=== PATIENT | male | born 1965 | race Native Hawaiian/Other Pacific Islander ===

== ENCOUNTER 2016-08-28 16:15 | Emergency (ER) | payer BC, OTHER ==
[2016-08-28 16:24] VITALS: RESP 20
[2016-08-28] MEDS ORDERED: MORPHINE SULFATE 10 MG/ML SYRINGE IM STA (16:27)
--- NOTE | 2016-08-28 16:43 | ED ---
Lower Extremity Injury HPI - General Chief Complaint: Extremity Injury, Lower Stated Complaint: Knee Pain/Injury Time Seen by Provider: 08/28/16 16:26 Source: patient Mode of arrival: wheelchair Limitations: no limitations - History of Present Illness Initial Comments: Patient is a 51-year-old male presenting to the emergency department with complaints of right knee pain. Onset of injury approximately one hour prior to arrival. Patient states that he was bending down to put on his pants on his left leg when his right leg hyperextended. Patient states he heard a pop. Patient mostly complains of medial knee pain but states the lateral side hurts too. Patient states he was unable to ambulate on scene and is unable to ambulate or extend right leg secondary to right knee pain and emergency department. Patient states that he has a history of a previous arthroscopically repair to his left knee and meniscal tear to his left knee that [place] [address] Kim. Patient states she received a hydrocortisone shot in his left knee on August 25 by his primary physician, Dr. Lugo, and has a prescription for a knee immobilizer that he was supposed to use at work, but hasn't filled prescription yet. Place: home Severity: severe Severity scale (1-10): 10 Improves With: immobilization, rest Worsens With: weight bearing, movement, palpation Context: other Associated Symptoms: snap/pop sensation, unable to bear weight - Related Data Home Medications Medication Instructions Recorded Confirmed HYDROcodone/IBUPROFEN 7.5-200 1 - 2 tab PO Q6H PRN 05/11/16 08/28/16 [Vicoprofen] Montelukast [Singulair] 10 mg PO DAILY 05/11/16 08/28/16 Rizatriptan Odt [Maxalt [employer]] 10 mg PO Q2H PRN MDD max 30mg 05/11/16 08/28/16 Tamsulosin HCl [Flomax] 0.4 mg PO DAILY 05/11/16 08/28/16 Cholecalciferol [Vitamin D3] 1,000 unit PO DAILY 05/12/16 08/28/16 Cyanocobalamin [Vitamin B-12] 500 mcg PO DAILY 05/12/16 08/28/16 Previous Rx's Medication Instructions Recorded Ondansetron [Zofran] 4 mg PO Q8HR PRN #10 tab 05/12/16 Allergies Allergy/AdvReac Type Severity Reaction Status Date / Time No Known Allergies Allergy Verified 08/28/16 16:22 Review of Systems ROS Statement: Those systems with pertinent positive or pertinent negative responses have been documented in the HPI. ROS Other: All systems not noted in ROS Statement are negative. Past Medical History Past Medical History: Asthma Additional Past Medical History / Comment(s): arthritiis History of Any Multi-Drug Resistant Organisms: None Reported Past Surgical History: Orthopedic Surgery Additional Past Surgical History / Comment(s): right knee and right wrist Past Psychological History: No Psychological Hx Reported Smoking Status: Never smoker Past Alcohol Use History: None Reported Past Drug Use History: None Reported General Exam Limitations: no limitations General appearance: alert, in no apparent distress, anxious Head exam: Present: atraumatic, normocephalic, normal inspection Respiratory exam: Present: normal lung sounds bilaterally. Absent: respiratory distress, wheezes, rales, rhonchi, stridor Cardiovascular Exam: Present: regular rate, normal rhythm, normal heart sounds. Absent: systolic murmur, diastolic murmur, rubs, gallop, clicks Right Knee exam: Present: tenderness (Tenderness with palpation to lateral and medial aspect of left knee but more medial.). Absent: full ROM (Limited mobility secondary to pain), full knee extension (Patient unable to straighten leg secondary to pain.) Ankle exam: Present: normal inspection, full ROM. Absent: tenderness, swelling Foot/Toe exam: Present: normal inspection, full ROM. Absent: tenderness, swelling, dislocation Neurovascular tendon exam: Present: no vascular compromise. Absent: abnormal cap refill, motor deficit, sensory deficit, tendon deficit, extremity cold to touch, abnormal 2-point discrimination, decreased fine/light touch, foot drop ( Patient able to dorsiflex left foot, 2+ pedal pulse, sensation to first webspace and great toe on the left side, movement of all toes on left foot. Refill on left foot less than 3 seconds.), significant pain with passive ROM of distal joint Gait: not tested/not observed Neurological exam: Present: alert, oriented X3. Absent: motor sensory deficit Psychiatric exam: Present: normal affect, normal mood, anxious Skin exam: Present: warm, dry, intact, normal color. Absent: rash Course Vital Signs 08/28/16 16:22 Temperature 97.8 F Pulse Rate 78 Respiratory 20 Rate Blood Pressure 134/90 O2 Sat by Pulse 98 Oximetry Medical Decision Making - Medical Decision Making Right knee sprain. X-ray without acute fracture or dislocation. Calcification of the meniscus. Patient instructed to follow-up with orthopedic service early next week, utilize crutches and continue pain medicine along with ice, rest, and elevation. Patient agrees with treatment plan. Return parameters and discharge instructions reviewed. - Radiology Data Radiology results: report reviewed X-ray right knee complete: Meniscal calcification is felt present. No acute fracture or dislocation. Mild joint space loss and spurring patellofemoral compartment. Overlying soft tissue appears unremarkable. Impression: No acute fracture or dislocation of the right knee. Chondrocalcinosis and mild degenerative changes present. Disposition Clinical Impression: Sprain of right knee Disposition: HOME SELF-CARE Condition: Good Instructions: Knee Pain (ED), Knee Sprain (ED) Additional Instructions: Follow-up with orthopedic service early next week. Follow-up with primary care physician as directed. Continue weight bearing as tolerated, crutches for comfort, continue ice, rest, and elevation as directed. Please return to the emergency department if symptoms do not improve or get worse. Referrals: Morteza Lugo MD [Primary Care Provider] - 1-2 days Gio Hernandez DO [Doctor of Osteopathic Medicine] - 1-2 days Time of Disposition: 17:35
[2016-08-28] MEDS ORDERED: KETOROLAC 30 MG/ML 1 ML VIAL IM STA (17:15)
--- NOTE | 2016-08-28 17:27 | XR ---
EXAMINATION TYPE: XR knee complete RT DATE OF EXAM: 08/28/2016 4:53 PM CLINICAL HISTORY: History of multiple right knee surgeries presents with pain. TECHNIQUE: Three views of the right knee are obtained. COMPARISON: None. FINDINGS: Meniscal calcification is felt present. A fabella is seen. There is no acute fracture/disl ocation evident in right knee. There is mild joint space loss and spurring patellofemoral compartment . The overlying soft tissue appears unremarkable. IMPRESSION: There is no acute fracture or dislocation in the right knee. Chondrocalcinosis and mild degenerative change is present.
[2016-08-28 17:43] VITALS: BP 141/90; PULSE 90; TEMP 98.2
== END 2016-08-28 17:43 | disposition home or self-care (01) ==
LOC: EC 16:15
DX: S83.91XA Sprain of unspecified site of right knee, initial encounter (principal); Z79.899 Other long term (current) drug therapy; X50.1XXA Overexertion from prolonged static or awkward postures, initial encounter; Y93.89 Activity, other specified
CPT/HCPCS: 96372 ×2; 99283; 73562; J2270; J1885

== ENCOUNTER 2017-10-26 22:25 | Emergency (ER) | payer BC, OTHER ==
[2017-10-26] MEDS ORDERED: SODIUM CHLORIDE 0.9% 1,000 ML IV STA (22:41)
[2017-10-26] MEDS ORDERED: KETOROLAC 30 MG/ML 1 ML VIAL IVP STA (23:02)
[2017-10-26 23:05] LABS: Basophils % (A) 1 %; Eosinophils # (A) 0.2 k/uL (0-0.7); Eosinophils % (A) 3 %; HCT 41.3 % (39.0-53.0); HGB 14.2 gm/dL (13.0-17.5); Lymphocytes # (A) 1.4 k/uL (1.0-4.8); Lymphocytes % (A) 26 %; MCH 31.6 pg (25.0-35.0); MCHC 34.5 g/dL (31.0-37.0); MCV 91.8 fL (80.0-100.0); Mean Platelet Volume 7.1; Monocytes # (A) 0.4 k/uL (0-1.0); Monocytes % (A) 8 %; Neutrophils # (A) 3.2 k/uL (1.3-7.7); Neutrophils % (A) 60 %; Platelet Count 286 k/uL (150-450); RDW 12.5 % (11.5-15.5); WBC 5.3 k/uL (3.8-10.6)
[2017-10-26 23:12] LABS: Appearance,Urine Clear (Clear); Bilirubin,Urine Negative (Negative); Blood,Urine Negative (Negative); Color,Urine Yellow; Glucose,Urine (UA) Negative (Negative); Ketones,Urine Negative (Negative); Leukocyte Esterase,Urine Negative (Negative); Protein,Urine Negative (Negative); Specific Gravity,Urine 1.013 (1.001-1.035); Urobilinogen,Urine <2.0 mg/dL (<2.0)
[2017-10-26 23:16] LABS: ALT 38 U/L (21-72); AST 22 U/L (17-59); Albumin 3.8 g/dL (3.5-5.0); Alkaline Phosphatase 54 U/L (38-126); Amylase 68 U/L (30-110); Anion Gap 8 mmol/L; Blood Urea Nitrogen 10 mg/dL (9-20); Carbon Dioxide 25 mmol/L (22-30); Chloride 105 mmol/L (98-107); Glucose 114 mg/dL (74-99); Lipase 108 U/L (23-300); Potassium 3.8 mmol/L (3.5-5.1); Sodium 138 mmol/L (137-145); Total Bilirubin 0.5 mg/dL (0.2-1.3); Total Protein 6.6 g/dL (6.3-8.2)
[2017-10-26] MEDS ORDERED: MORPHINE SULFATE 4 MG/ML SYRINGE IVP STA (23:30)
[2017-10-26] MEDS ORDERED: ONDANSETRON 4 MG/2 ML VIAL IVP STA (23:30)
--- NOTE | 2017-10-26 23:30 | XR ---
EXAMINATION TYPE: XR KUB DATE OF EXAM: 10/26/2017 COMPARISON: 06/01/2011 HISTORY: Low back pain TECHNIQUE: 2 views FINDINGS: Bowel gas pattern is normal. There is no sign of intestinal obstruction or pneumoperitoneum . Fecal pattern is normal. Lung bases are clear. There are no pathologic calcifications. Bony structu res are intact. IMPRESSION: Nonacute abdomen. No change.
[2017-10-26] MEDS ORDERED: RX INFO: IV CONTRAST WAS GIVEN 1 EACH MISC MISCELLANE PRN (23:39)
--- NOTE | 2017-10-26 23:52 | ED ---
Abdominal Pain HPI - General Chief Complaint: Abdominal Pain Stated Complaint: back & abdominal pain Time Seen by Provider: 10/26/17 22:40 Source: patient, RN notes reviewed Mode of arrival: ambulatory Limitations: no limitations - History of Present Illness Initial Comments: Is a 52-year-old male presents emergency Department with chief complaint abdominal pain. Patient states Tuesday he developed nausea vomiting diarrhea. He felt that he just may have contracted a GI bug states that he continues to have some abdominal discomfort. He also complains that he has some low back pain. Patient denies any reported fever, chills. He states he has no nausea vomiting along with the diarrhea. Patient denies any dysuria or hematuria. Denies any prior abdominal surgeries. Patient denies chest pain, shortness breath, headache or dizziness. - Related Data Home Medications Medication Instructions Recorded Confirmed HYDROcodone/IBUPROFEN 7.5-200 1 - 2 tab PO Q6H PRN 05/11/16 10/26/17 [Vicoprofen] Meloxicam (Unknown Dose) 1 tab PO DAILY 10/26/17 10/26/17 Metoprolol Tartrate [Lopressor] 25 mg PO BID 10/26/17 10/26/17 Mometasone/Formoterol [Dulera 200 1 puff INHALATION RT-Q12H 10/26/17 10/26/17 Mcg/5 Mcg Inhaler] PARoxetine [Paxil] 20 mg PO DAILY 10/26/17 10/26/17 Previous Rx's Medication Instructions Recorded Dicyclomine [Bentyl] 20 mg PO TID #30 tablet 10/27/17 Omeprazole 40 mg PO DAILY #14 capsule. 10/27/17 Allergies Allergy/AdvReac Type Severity Reaction Status Date / Time topiramate [From Trokendi XR] Allergy Rash/Hives Verified 10/26/17 22:53 verapamil Allergy Chest Pain Verified 10/26/17 22:53 Review of Systems ROS Statement: Those systems with pertinent positive or pertinent negative responses have been documented in the HPI. ROS Other: All systems not noted in ROS Statement are negative. Past Medical History Past Medical History: Asthma Additional Past Medical History / Comment(s): arthritiis, migraines History of Any Multi-Drug Resistant Organisms: None Reported Past Surgical History: Orthopedic Surgery Additional Past Surgical History / Comment(s): right knee and right wrist Past Psychological History: No Psychological Hx Reported Smoking Status: Never smoker Past Alcohol Use History: None Reported Past Drug Use History: None Reported General Exam Limitations: no limitations General appearance: alert, in no apparent distress Head exam: Present: atraumatic, normocephalic, normal inspection Eye exam: Present: normal appearance, PERRL, EOMI. Absent: scleral icterus, conjunctival injection, periorbital swelling ENT exam: Present: normal exam, normal oropharynx, mucous membranes moist, TM's normal bilaterally, normal external ear exam Neck exam: Present: normal inspection, full ROM. Absent: tenderness, meningismus, lymphadenopathy Respiratory exam: Present: normal lung sounds bilaterally. Absent: respiratory distress, wheezes, rales, rhonchi, stridor Cardiovascular Exam: Present: regular rate, normal rhythm, normal heart sounds. Absent: systolic murmur, diastolic murmur, rubs, gallop, clicks GI/Abdominal exam: Present: soft, tenderness (Mild diffuse), normal bowel sounds. Absent: distended, guarding, rebound, rigid Back exam: Absent: CVA tenderness (R), CVA tenderness (L) Skin exam: Present: warm, dry, intact, normal color. Absent: rash Course Vital Signs 10/26/17 22:29 Temperature 98.2 F Pulse Rate 76 Respiratory 16 Rate Blood Pressure 123/85 O2 Sat by Pulse 96 Oximetry Medical Decision Making - Medical Decision Making This a 52-year-old male present emergency from for abdominal pain. Patient did have some nausea vomiting diarrhea over the weekend symptoms improved from that standpoint but is complaint abdominal discomfort. CT reviewed show some diverticulosis no evidence of diverticulitis. Patient lab work essentially unremarkable. Patient was likely having pain from recent gastroenteritis. Patient be discharged with antacids, Bentyl. He is advised to a clear liquid diet and progress as tolerated. - Lab Data Result diagrams: 10/26/17 22:50 10/26/17 22:50 Lab Results 10/26/17 10/26/17 10/26/17 Range/Units 22:50 22:50 22:59 WBC 5.3 (3.8-10.6) k/uL RBC 4.50 (4.30-5.90) m/uL Hgb 14.2 (13.0-17.5) gm/dL Hct 41.3 (39.0-53.0) % MCV 91.8 (80.0-100.0) fL MCH 31.6 (25.0-35.0) pg MCHC 34.5 (31.0-37.0) g/dL RDW 12.5 (11.5-15.5) % Plt Count 286 (150-450) k/uL Neutrophils % 60 % Lymphocytes % 26 % Monocytes % 8 % Eosinophils % 3 % Basophils % 1 % Neutrophils # 3.2 (1.3-7.7) k/uL Lymphocytes # 1.4 (1.0-4.8) k/uL Monocytes # 0.4 (0-1.0) k/uL Eosinophils # 0.2 (0-0.7) k/uL Basophils # 0.0 (0-0.2) k/uL Sodium 138 (137-145) mmol/L Potassium 3.8 (3.5-5.1) mmol/L Chloride 105 (98-107) mmol/L Carbon Dioxide 25 (22-30) mmol/L Anion Gap 8 mmol/L BUN 10 (9-20) mg/dL Creatinine 0.90 (0.66-1.25) mg/dL Est GFR (CKD-EPI)AfAm >90 (>60 ml/min/1.73 sqM) Est GFR (CKD-EPI)NonAf >90 (>60 ml/min/1.73 sqM) Glucose 114 H (74-99) mg/dL Calcium 9.0 (8.4-10.2) mg/dL Total Bilirubin 0.5 (0.2-1.3) mg/dL AST 22 (17-59) U/L ALT 38 (21-72) U/L Alkaline Phosphatase 54 (38-126) U/L Total Protein 6.6 (6.3-8.2) g/dL Albumin 3.8 (3.5-5.0) g/dL Amylase 68 (30-110) U/L Lipase 108 (23-300) U/L Urine Color Yellow Urine Appearance Clear (Clear) Urine pH 6.0 (5.0-8.0) Ur Specific [place] 1.013 (1.001-1.035) Urine Protein Negative (Negative) Urine Glucose (UA) Negative (Negative) Urine Ketones Negative (Negative) Urine Blood Negative (Negative) Urine Nitrite Negative (Negative) Urine Bilirubin Negative (Negative) Urine Urobilinogen <2.0 (<2.0) mg/dL Ur Leukocyte Esterase Negative (Negative) Disposition Clinical Impression: Abdominal pain, Gastroenteritis Disposition: HOME SELF-CARE Condition: Stable Instructions: Abdominal Pain (ED) Additional Instructions: Please return to the Emergency Department if symptoms worsen or any other concerns. Prescriptions: Dicyclomine [Bentyl] 20 mg PO TID #30 tablet Omeprazole 40 mg PO DAILY #14 capsule.dr Referrals: Morteza Lugo MD [Primary Care Provider] - 1-2 days Time of Disposition: 00:36
--- NOTE | 2017-10-27 00:23 | CT ---
EXAMINATION TYPE: CT abdomen pelvis w con DATE OF EXAM: 10/27/2017 COMPARISON: 08/13/2016 HISTORY: LBP and abdominal pain X3 days CT DLP: 596.20 mGycm Automated exposure control for dose reduction was used. TECHNIQUE: Helical acquisition of images was performed from the lung bases through the pelvis. CONTRAST: Performed without Oral Contrast and with IV Contrast, patient injected with 100 mL of Omnipaque 300. FINDINGS: Lung bases are clear of infiltrate. There is no pleural effusion. There is a small hiatal hernia. Liver shows no focal defect. There is a 7 mm cyst in the anterior right lobe of the liver. Bile ducts are not dilated. Gallbladder appears normal. There spleen and pancreas appear normal. There is no adrenal mass. The kidneys show satisfactory contrast opacification. There is no hydroneph rosis. There is no retroperitoneal adenopathy. There is no ascites. Abdominal aorta shows mild athero matous change. There is no evidence of free air. Appendix appears normal. I see no intestinal wall th ickening. There are no dilated loops. There is no sign of a hernia. There are a few sigmoid diverticu la. There is no sign of diverticulitis. There are small prostatic calcifications. Bladder distends sm oothly. Bony structures appear normal. IMPRESSION: MINIMAL SIGMOID DIVERTICULOSIS. SMALL HIATAL HERNIA. NO SIGN OF ACUTE ABDOMEN AND PELVIS. NO ADVERSE CHANGE COMPARED TO OLD EXAM.
[2017-10-27 00:48] VITALS: BP 118/73; PULSE 66; RESP 18; TEMP 97.2
== END 2017-10-27 00:49 | disposition home or self-care (01) ==
LOC: EC 22:25
DX: K52.9 Noninfective gastroenteritis and colitis, unspecified (principal); K57.90 Diverticulosis of intestine, part unspecified, without perforation or abscess without bleeding; J45.909 Unspecified asthma, uncomplicated; M19.90 Unspecified osteoarthritis, unspecified site; Z79.51 Long term (current) use of inhaled steroids; Z79.1 Long term (current) use of non-steroidal anti-inflammatories (NSAID); Z79.899 Other long term (current) drug therapy; Z88.8 Allergy status to other drugs, medicaments and biological substances
CPT/HCPCS: 36415; 80053; 82150; 83690; 85025; 81003; 74018; 74177; 99284; 96374; 96375 ×2; 96361 ×2; J2270; J2405; J1885; Q9967

== ENCOUNTER 2017-11-22 17:50 | Emergency (ER) | payer BC ==
[2017-11-22] MEDS ORDERED: KETOROLAC 30 MG/ML 1 ML VIAL IVP STA (18:11)
[2017-11-22] MEDS ORDERED: ONDANSETRON 4 MG/2 ML VIAL IVP STA (18:11)
[2017-11-22] MEDS ORDERED: SODIUM CHLORIDE 0.9% 1,000 ML IV STA (18:11)
--- NOTE | 2017-11-22 18:13 | ED ---
Abdominal Pain HPI - General Chief Complaint: Abdominal Pain Stated Complaint: abdominal pain Time Seen by Provider: 11/22/17 18:02 Source: patient, RN notes reviewed Mode of arrival: ambulatory Limitations: no limitations - History of Present Illness Initial Comments: This is a 52-year-old male who presents to the emergency department with chief complaint of generalized abdominal pain. Patient states that he was seen in the emergency department 3 weeks ago with the same issue. He states he was discharged home with Prilosec. He states that the medication has not helped. Since being evaluated here, patient states that his pain has progressively worsened. He states that he continues to have nausea and vomiting. He also admits to intermittent diarrhea and constipation. He states that he has been waking up with cold sweats and chills. Patient does report a history of gastric ulcers. He states that he has noticed some blood in his vomitus. Patient also reports chronic back pain from a previous injury that resulted in a broken back. He states that the pain has worsened. Denies chest pain or shortness of breath, dysuria or hematuria, headache or dizziness. - Related Data Home Medications Medication Instructions Recorded Confirmed HYDROcodone/IBUPROFEN 7.5-200 1 - 2 tab PO Q6H PRN 05/11/16 11/22/17 [Vicoprofen] Metoprolol Tartrate [Lopressor] 25 mg PO BID 10/26/17 11/22/17 Mometasone/Formoterol [Dulera 200 1 puff INHALATION RT-Q12H 10/26/17 11/22/17 Mcg/5 Mcg Inhaler] PARoxetine [Paxil] 20 mg PO DAILY 10/26/17 11/22/17 Butalb/Acetaminophen/Caffeine 1 tab PO Q4H PRN 11/22/17 11/22/17 [Fioricet 50-325-40] Meloxicam 7.5 mg PO DAILY 11/22/17 11/22/17 SUMAtriptan SUCCINATE [Sumavel 6 mg SQ DAILY PRN 11/22/17 11/22/17 Dosepro] Previous Rx's Medication Instructions Recorded Omeprazole [PriLOSEC] 20 mg PO AC-BRKFST #14 cap 11/22/17 Allergies Allergy/AdvReac Type Severity Reaction Status Date / Time shellfish derived [Shellfish] Allergy Swelling Verified 11/22/17 18:34 topiramate [From Trokendi XR] Allergy Rash/Hives Verified 11/22/17 18:33 verapamil Allergy Chest Pain Verified 11/22/17 18:33 Review of Systems ROS Statement: Those systems with pertinent positive or pertinent negative responses have been documented in the HPI. ROS Other: All systems not noted in ROS Statement are negative. Past Medical History Past Medical History: Asthma Additional Past Medical History / Comment(s): arthritiis, migraines History of Any Multi-Drug Resistant Organisms: None Reported Past Surgical History: Orthopedic Surgery Additional Past Surgical History / Comment(s): right knee and right wrist Past Psychological History: No Psychological Hx Reported Smoking Status: Never smoker Past Alcohol Use History: None Reported Past Drug Use History: None Reported General Exam - General Exam Comments Initial Comments: General: Awake and alert, well-developed; in no apparent distress. Does not appear acutely ill. Calm and cooperative. HEENT: Head atraumatic, normocephalic. Pupils are equal, round and reactive to light. Extraocular movements intact. Oropharynx dry without erythema or exudate. Neck: Supple. Normal ROM. Cardiovascular: Regular rate and rhythm. No murmurs, rubs or gallops. Chest symmetrical. Respiratory: Lungs clear to auscultation bilaterally. No wheezes, rales or rhonchi. Normal respiratory effort with no use of accessory muscles. Abdomen: Soft, non-distended. Generalized tenderness on palpation. No rigidity , rebound or guarding. Hypoactive bowel sounds 4 quadrants. Musculoskeletal: Normal ROM, no tenderness bilateral upper and lower extremities. There is tenderness along bilateral thoracic and lumbar paraspinal muscles. No bony point vertebral tenderness or SI joint tenderness. Skin: [place], warm and dry without rashes or lesions. Neurological: Alert and oriented x3. CN II-XII grossly intact. Speech is fluent and answers are appropriate. No focal neuro deficits. Psychiatric: Normal mood and affect. No overt signs of depression or anxiety noted. Limitations: no limitations Course Vital Signs 11/22/17 11/22/17 11/22/17 17:58 19:24 20:59 Temperature 98.6 F 98.3 F Pulse Rate 73 64 68 Respiratory 18 18 20 Rate Blood Pressure 141/97 135/85 138/56 O2 Sat by Pulse 96 100 99 Oximetry 11/22/17 22:00 Temperature 98.1 F Pulse Rate 61 Respiratory 18 Rate Blood Pressure 131/78 O2 Sat by Pulse 97 Oximetry - Reevaluation(s) Reevaluation #1: At this time, we did discuss results of computed tomography scan. CT showed evidence of hydropic gallbladder. Ultrasound will be obtained for better visualization of the gallbladder. Patient states that his symptoms have improved since receiving Toradol and antiemetics. He is resting comfortably in bed at this time. 11/22/17 21:08 Medical Decision Making - Medical Decision Making This is a 52-year-old male who presents to the emergency department with chief complaint of generalized abdominal pain. He also admitted to associated nausea and no vomiting. Symptoms have been present for 1 month. CBC revealed a white count of 11.2. CMP and UA were unremarkable. Patient's vital signs at been stable and he is in no acute distress. He was given antiemetics and Toradol and there was noted improvement in patient's symptoms. X-ray KUB revealed colonic stool with a nonacute abdomen. CT of abdomen and pelvis revealed sigmoid diverticulitis without diverticulitis, hydropic size of the gallbladder. This was redemonstrated on ultrasound of the gallbladder without evidence for acute cholecystitis. Findings were discussed with patient at bedside. He reported recurrence of the abdominal pain that he currently describes as burning. GI cocktail was administered. Patient reported a complete resolution of symptoms. He states that he does believe he has a gastric ulcer as he has had them in the past. He will be discharged home at this time with a prescription for Prilosec. He is to follow-up with his primary care provider within 1-2 days. Patient is in agreement with plan and voices understanding. All questions were answered. - Lab Data Result diagrams: 11/22/17 19:04 11/22/17 19:04 Lab Results 11/22/17 11/22/17 11/22/17 Range/Units 19:04 19:04 19:20 WBC 11.2 H (3.8-10.6) k/uL RBC 4.31 (4.30-5.90) m/uL Hgb 14.2 (13.0-17.5) gm/dL Hct 39.7 (39.0-53.0) % MCV 92.2 (80.0-100.0) fL MCH 33.0 (25.0-35.0) pg MCHC 35.8 (31.0-37.0) g/dL RDW 12.1 (11.5-15.5) % Plt Count 281 (150-450) k/uL Neutrophils % 82 % Lymphocytes % 12 % Monocytes % 5 % Eosinophils % 1 % Basophils % 0 % Neutrophils # 9.1 H (1.3-7.7) k/uL Lymphocytes # 1.3 (1.0-4.8) k/uL Monocytes # 0.5 (0-1.0) k/uL Eosinophils # 0.1 (0-0.7) k/uL Basophils # 0.0 (0-0.2) k/uL Sodium 141 (137-145) mmol/L Potassium 3.9 (3.5-5.1) mmol/L Chloride 103 (98-107) mmol/L Carbon Dioxide 26 (22-30) mmol/L Anion Gap 12 mmol/L BUN 10 (9-20) mg/dL Creatinine 0.80 (0.66-1.25) mg/dL Est GFR (CKD-EPI)AfAm >90 (>60 ml/min/1.73 sqM) Est GFR (CKD-EPI)NonAf >90 (>60 ml/min/1.73 sqM) Glucose 108 H (74-99) mg/dL Calcium 10.0 (8.4-10.2) mg/dL Total Bilirubin 0.5 (0.2-1.3) mg/dL AST 20 (17-59) U/L ALT 28 (21-72) U/L Alkaline Phosphatase 68 (38-126) U/L Total Protein 7.4 (6.3-8.2) g/dL Albumin 4.2 (3.5-5.0) g/dL Amylase 67 (30-110) U/L Lipase 54 (23-300) U/L Urine Color Light Yellow Urine Appearance Clear (Clear) Urine pH 5.5 (5.0-8.0) Ur Specific [place] 1.006 (1.001-1.035) Urine Protein Negative (Negative) Urine Glucose (UA) Negative (Negative) Urine Ketones Negative (Negative) Urine Blood Negative (Negative) Urine Nitrite Negative (Negative) Urine Bilirubin Negative (Negative) Urine Urobilinogen <2.0 (<2.0) mg/dL Ur Leukocyte Esterase Negative (Negative) - EKG Data EKG Comments: 18:26:26. Normal sinus rhythm. Ventricular rate 63 bpm, MS interval 150, QRS duration 92, QT/QTc 400/409 - Radiology Data Radiology results: report reviewed, image reviewed X-ray KUB impression: Mild degree of retained colonic stool and an overall nonobstructive bowel gas pattern, unchanged from the prior of 10/26/2017. CT abdomen and pelvis with IV contrast impression: 1. Circumferential urinary bladder thickening may relate to incomplete distention although correlation with urinalysis recommended to exclude cystitis. 2. Hydropic size of the gallbladder without any other CT evidence of acute cholecystitis. 3. Sigmoid diverticulosis without evidence of acute diverticulitis. Ultrasound gallbladder impression: Re-demonstration of hydropic size of the gallbladder without other sonographic findings of acute cholecystitis. HIDA scan with CCK could be performed to evaluate for chronic cholecystitis and/or biliary dyskinesia. Disposition Clinical Impression: Abdominal pain Disposition: HOME SELF-CARE Condition: Good Instructions: Gastritis (ED), Diet for Stomach Ulcers and Gastritis (ED), Chronic Abdominal Pain (ED) Additional Instructions: Please follow-up with Dr. Ivy, gastroenterology. Please take medications as prescribed. Please follow up with primary care provider within 1-2 days. Return to emergency department if symptoms should worsen or any concerns arise. Prescriptions: Omeprazole [PriLOSEC] 20 mg PO AC-BRKFST #14 cap Referrals: Morteza Lugo MD [Primary Care Provider] - 1-2 days Marco A Ivy MD [STAFF PHYSICIAN] - 1-2 days Time of Disposition: 23:12
[2017-11-22 19:24] LABS: Basophils % (A) 0 %; Eosinophils # (A) 0.1 k/uL (0-0.7); Eosinophils % (A) 1 %; HCT 39.7 % (39.0-53.0); HGB 14.2 gm/dL (13.0-17.5); Lymphocytes # (A) 1.3 k/uL (1.0-4.8); Lymphocytes % (A) 12 %; MCHC 35.8 g/dL (31.0-37.0); MCV 92.2 fL (80.0-100.0); Mean Platelet Volume 6.9; Monocytes # (A) 0.5 k/uL (0-1.0); Monocytes % (A) 5 %; Neutrophils # (A) 9.1 k/uL (1.3-7.7); Neutrophils % (A) 82 %; Platelet Count 281 k/uL (150-450); RBC 4.31 m/uL (4.30-5.90); RDW 12.1 % (11.5-15.5); WBC 11.2 k/uL (3.8-10.6)
--- NOTE | 2017-11-22 19:29 | XR ---
EXAMINATION TYPE: XR KUB DATE OF EXAM: 11/22/2017 7:21 PM CLINICAL HISTORY: Abdominal pain and back pain for 3 weeks TECHNIQUE: Single upright image of the abdomen is obtained. COMPARISON: 10/26/2017 FINDINGS: Scattered gas is seen in non-distended small bowel loops. Gas and fecal material is seen in non-distended colon. There is no visceromegaly, pneumoperitoneum, or abnormal calcification apprecia lisa. The lung bases are clear and the osseous structures are intact. There is a mild S-shaped scoliot ic curvature of the visualized thoracolumbar spine. IMPRESSION: Mild degree of retained colonic stool and an overall nonobstructive bowel gas pattern, un changed from the prior of 10/26/2017.
[2017-11-22 19:32] LABS: Appearance,Urine Clear (Clear); Bilirubin,Urine Negative (Negative); Blood,Urine Negative (Negative); Color,Urine Light Yellow; Glucose,Urine (UA) Negative (Negative); Ketones,Urine Negative (Negative); Leukocyte Esterase,Urine Negative (Negative); Nitrite,Urine Negative (Negative); PH, Urine 5.5 (5.0-8.0); Protein,Urine Negative (Negative); Specific Gravity,Urine 1.006 (1.001-1.035); Urobilinogen,Urine <2.0 mg/dL (<2.0)
[2017-11-22 19:34] LABS: ALT 28 U/L (21-72); AST 20 U/L (17-59); Albumin 4.2 g/dL (3.5-5.0); Alkaline Phosphatase 68 U/L (38-126); Amylase 67 U/L (30-110); Anion Gap 12 mmol/L; Blood Urea Nitrogen 10 mg/dL (9-20); Carbon Dioxide 26 mmol/L (22-30); Chloride 103 mmol/L (98-107); Glucose 108 mg/dL (74-99); Lipase 54 U/L (23-300); Potassium 3.9 mmol/L (3.5-5.1); Sodium 141 mmol/L (137-145); Total Bilirubin 0.5 mg/dL (0.2-1.3); Total Protein 7.4 g/dL (6.3-8.2)
[2017-11-22] MEDS ORDERED: RX INFO: IV CONTRAST WAS GIVEN 1 EACH MISC MISCELLANE PRN (19:45)
--- NOTE | 2017-11-22 20:48 | CT ---
EXAMINATION TYPE: CT abdomen pelvis w con DATE OF EXAM: 11/22/2017 COMPARISON: 10/26/2017 HISTORY: Low abdominal pain x [address] DLP: 588.2 mGycm Automated exposure control for dose reduction was used. TECHNIQUE: Helical acquisition of images was performed from the lung bases through the pelvis. CONTRAST: Performed without Oral Contrast and with IV Contrast, patient injected with 100 mL of Isovue 300. FINDINGS: LUNG BASES: No significant abnormality is appreciated. LIVER/GB: Gallbladder is hydropic measuring 10.6 cm. No right upper quadrant fat stranding is seen. N o enlargement of the common bile duct is noted. 2 small to accurately characterize 4 mm hypoattenuate d lesion is seen within the right hepatic lobe on series 3 image 11. PANCREAS: No significant abnormality is seen. SPLEEN: Nonenlarged. Small splenule seen adjacent to the wales spleen. ADRENALS: No nodularity or thickening. KIDNEYS: 2 mm nonobstructing left midpole renal calculus is present on series 3 image 34. Additional probable 2 mm left upper pole punctate calculus is seen on image 29. There is a slightly lobular cont our of the kidneys. No hydronephrosis. FREE AIR: No free air is visualized. REPRODUCTIVE ORGANS: Central zone calcifications are seen and heterogenous prostate gland. URINARY BLADDER: Urinary bladder demonstrates circumferential wall thickening and may relate to inco mplete distention. Small urachal incidentally noted. ADENOPATHY: No greater than 1 cm short axis lymph nodes are seen within the abdomen or pelvis. OSSEOUS STRUCTURES: 2 scattered sclerotic foci within the pelvis likely relate to small bone islands . BOWEL: 2 scattered sigmoid diverticula are present without pericolonic fat stranding. No evidence of bowel obstruction. Appendix is air-filled and within normal limits of size. OTHER: There is a very small fat filled periumbilical hernia. Mild atherosclerosis is seen of the abd ominal aorta and its branches. IMPRESSION: 1. CIRCUMFERENTIAL URINARY BLADDER THICKENING MAY RELATE TO INCOMPLETE DISTENTION ALTHOUGH CORRELATIO N WITH URINALYSIS RECOMMENDED TO EXCLUDE CYSTITIS. 2. HYDROPIC SIZE OF THE GALLBLADDER WITHOUT ANY OTHER CT EVIDENCE OF ACUTE CHOLECYSTITIS. 3. SIGMOID DIVERTICULOSIS WITHOUT EVIDENCE OF ACUTE DIVERTICULITIS.
--- NOTE | 2017-11-22 22:12 | US ---
EXAMINATION TYPE: US gallbladder DATE OF EXAM: 11/22/2017 COMPARISON: NONE CLINICAL HISTORY: Pain. RUQ pain nausea and vomiting. EXAM MEASUREMENTS: Liver Length: 16.4 cm Gallbladder Wall: 0.3 cm CBD: 0.5 cm Right Kidney: 10.7 x 4.9 x 4.2 cm Pancreas: Obscured by bowel gas Liver: Homogenous areas seen on ct scan not well visualized on this exam. Gallbladder: Hydropic 10.3 cm no stones seen. Evidence for sonographic [place]'s sign: No CBD: wnl Right Kidney: No hydronephrosis or masses seen Gallbladder is hydropic 10.3 cm. IMPRESSION: Redemonstration of hydropic size of the gallbladder without other sonographic findings of acute cholecystitis. HIDA scan with CCK could be performed to evaluate for chronic cholecystitis and /or biliary dyskinesia.
[2017-11-22 22:24] VITALS: RESP 18
[2017-11-22] MEDS ORDERED: MAG HYDROX/AL HYDROX/SIMETH 30 ML, HYOSCYAMINE ELIXIR 10 ML, CIMETIDINE HCL 300 MG, LID... PO STA ×4 (22:29)
[2017-11-22 23:38] VITALS: BP 114/68; PULSE 68
[2017-11-22 23:49] VITALS: TEMP 97.9
== END 2017-11-22 23:49 | disposition home or self-care (01) ==
LOC: EC 17:50
DX: R10.84 Generalized abdominal pain (principal); K57.90 Diverticulosis of intestine, part unspecified, without perforation or abscess without bleeding; K82.8 Other specified diseases of gallbladder; R19.7 Diarrhea, unspecified; R11.0 Nausea; K59.00 Constipation, unspecified; M19.90 Unspecified osteoarthritis, unspecified site; J45.909 Unspecified asthma, uncomplicated; Z79.51 Long term (current) use of inhaled steroids; Z79.899 Other long term (current) drug therapy; Z91.013 Allergy to seafood; Z88.8 Allergy status to other drugs, medicaments and biological substances
CPT/HCPCS: 36415; 93005; 80053; 82150; 83690; 85025; 81003; 87086; 74018; 76705; 74177; 99284; 96374; 96375; 96361; J2405; J1885; Q9967

== ENCOUNTER 2019-08-26 23:05 | Emergency (ER) | payer BC ==
[2019-08-26 23:18] VITALS: TEMP 98.4
[2019-08-26] MEDS ORDERED: SODIUM CHLORIDE 0.9% 1,000 ML IV STA (23:33)
[2019-08-26] MEDS ORDERED: KETOROLAC 30 MG/ML 1 ML VIAL IVP STA (23:34)
--- NOTE | 2019-08-26 23:44 | ED ---
General Adult HPI - General Chief complaint: Abdominal Pain Stated complaint: Abdominal/Back Pain Source: patient, RN notes reviewed Mode of arrival: ambulatory Limitations: no limitations - History of Present Illness Initial comments: 54-year-old male presents to the emergency department for a chief complaint of abdominal pain. Patient states his pain is in his denies abdomen and radiates to his back. Patient states he has had similar intermittent pain for the past one to 2 years. It worsened again 11 days ago and he saw his primary care and was treated for diverticulitis. Patient has been taking Rocephin and Flagyl. He states today pain got worse so he wanted to be evaluated. He has been nauseous and vomited yesterday. No fevers.Patient has no other complaints at this time including shortness of breath, chest pain, headache, or visual changes. - Related Data Home Medications Medication Instructions Recorded Confirmed HYDROcodone/IBUPROFEN 7.5-200 1 - 2 tab PO Q6H PRN 05/11/16 11/22/17 [Vicoprofen] Metoprolol Tartrate [Lopressor] 25 mg PO BID 10/26/17 11/22/17 Mometasone/Formoterol [Dulera 200 1 puff INHALATION RT-Q12H 10/26/17 11/22/17 Mcg/5 Mcg Inhaler] PARoxetine [Paxil] 20 mg PO DAILY 10/26/17 11/22/17 Butalb/Acetaminophen/Caffeine 1 tab PO Q4H PRN 11/22/17 11/22/17 [Fioricet 50-325-40] Meloxicam 7.5 mg PO DAILY 11/22/17 11/22/17 SUMAtriptan SUCCINATE [Sumavel 6 mg SQ DAILY PRN 11/22/17 11/22/17 Dosepro] Previous Rx's Medication Instructions Recorded Omeprazole [PriLOSEC] 20 mg PO AC-BRKFST #14 cap 11/22/17 Famotidine [Pepcid] 20 mg PO BID #14 tablet 08/27/19 Allergies Allergy/AdvReac Type Severity Reaction Status Date / Time shellfish derived [Shellfish] Allergy Swelling Verified 08/26/19 23:18 topiramate [From [facility] XR] Allergy Rash/Hives Verified 08/26/19 23:18 verapamil Allergy Chest Pain Verified 08/26/19 23:18 Review of Systems ROS Statement: Those systems with pertinent positive or pertinent negative responses have been documented in the HPI. ROS Other: All systems not noted in ROS Statement are negative. Past Medical History Past Medical History: Asthma Additional Past Medical History / Comment(s): arthritiis, migraines History of Any Multi-Drug Resistant Organisms: None Reported Past Surgical History: Orthopedic Surgery Additional Past Surgical History / Comment(s): right knee and right wrist Past Psychological History: No Psychological Hx Reported Smoking Status: Never smoker Past Alcohol Use History: None Reported Past Drug Use History: None Reported General Exam Limitations: no limitations General appearance: alert, in no apparent distress Head exam: Present: atraumatic, normocephalic, normal inspection Eye exam: Present: normal appearance, PERRL, EOMI. Absent: scleral icterus, conjunctival injection, periorbital swelling ENT exam: Present: normal exam, mucous membranes moist Neck exam: Present: normal inspection, full ROM. Absent: tenderness, meningismus, lymphadenopathy Respiratory exam: Present: normal lung sounds bilaterally. Absent: respiratory distress, wheezes, rales, rhonchi, stridor Cardiovascular Exam: Present: regular rate, normal rhythm, normal heart sounds. Absent: systolic murmur, diastolic murmur, rubs, gallop, clicks GI/Abdominal exam: Present: soft, tenderness (Generalized abdominal tenderness worse in the left upper and lower quadrant), normal bowel sounds. Absent: distended, guarding, rebound, rigid Neurological exam: Present: alert Course Vital Signs 08/26/19 08/27/19 23:16 01:47 Temperature 98.4 F Pulse Rate 75 66 Respiratory 20 18 Rate Blood Pressure 148/83 143/98 O2 Sat by Pulse 98 98 Oximetry Medical Decision Making - Medical Decision Making Vitals are stable. CBC CMP is unremarkable. Mild degree dehydration, patient given fluids. Urinalysis unremarkable CT abdomen and pelvis shows mild sigmoid diverticulosis without diverticulitis. Normal appendix. Patient was given GI cocktail, Pepcid, and pain medication. They much better. Requesting Pepcid prescription. Patient we discharged home to follow up with primary care as primary care's already managing this with antibiotics. They will return here if he has any worsening symptoms. - Lab Data Result diagrams: 08/26/19 23:30 08/26/19 23:30 Lab Results 08/26/19 08/26/19 08/26/19 Range/Units 23:30 23:30 23:30 WBC 6.3 (3.8-10.6) k/uL RBC 4.64 (4.30-5.90) m/uL Hgb 15.1 (13.0-17.5) gm/dL Hct 44.3 (39.0-53.0) % MCV 95.5 (80.0-100.0) fL MCH 32.5 (25.0-35.0) pg MCHC 34.1 (31.0-37.0) g/dL RDW 11.8 (11.5-15.5) % Plt Count 306 (150-450) k/uL Neutrophils % 71 % Lymphocytes % 17 % Monocytes % 8 % Eosinophils % 2 % Basophils % 0 % Neutrophils # 4.5 (1.3-7.7) k/uL Lymphocytes # 1.1 (1.0-4.8) k/uL Monocytes # 0.5 (0-1.0) k/uL Eosinophils # 0.1 (0-0.7) k/uL Basophils # 0.0 (0-0.2) k/uL Sodium 134 L (137-145) mmol/L Potassium 4.4 (3.5-5.1) mmol/L Chloride 102 (98-107) mmol/L Carbon Dioxide 24 (22-30) mmol/L Anion Gap 8 mmol/L BUN 24 H (9-20) mg/dL Creatinine 0.91 (0.66-1.25) mg/dL Est GFR (CKD-EPI)AfAm >90 (>60 ml/min/1.73 sqM) Est GFR (CKD-EPI)NonAf >90 (>60 ml/min/1.73 sqM) Glucose 110 H (74-99) mg/dL Plasma Lactic Acid Hany 1.4 (0.7-2.0) mmol/L Calcium 9.9 (8.4-10.2) mg/dL Total Bilirubin 0.4 (0.2-1.3) mg/dL AST 30 (17-59) U/L ALT 46 (4-49) U/L Alkaline Phosphatase 57 (38-126) U/L Total Protein 7.2 (6.3-8.2) g/dL Albumin 4.2 (3.5-5.0) g/dL Amylase 124 H (30-110) U/L Lipase 262 (23-300) U/L Urine Color Urine Appearance (Clear) Urine pH (5.0-8.0) Ur Specific [place] (1.001-1.035) Urine Protein (Negative) Urine Glucose (UA) (Negative) Urine Ketones (Negative) Urine Blood (Negative) Urine Nitrite (Negative) Urine Bilirubin (Negative) Urine Urobilinogen (<2.0) mg/dL Ur Leukocyte Esterase (Negative) 08/26/19 Range/Units 23:30 WBC (3.8-10.6) k/uL RBC (4.30-5.90) m/uL Hgb (13.0-17.5) gm/dL Hct (39.0-53.0) % MCV (80.0-100.0) fL MCH (25.0-35.0) pg MCHC (31.0-37.0) g/dL RDW (11.5-15.5) % Plt Count (150-450) k/uL Neutrophils % % Lymphocytes % % Monocytes % % Eosinophils % % Basophils % % Neutrophils # (1.3-7.7) k/uL Lymphocytes # (1.0-4.8) k/uL Monocytes # (0-1.0) k/uL Eosinophils # (0-0.7) k/uL Basophils # (0-0.2) k/uL Sodium (137-145) mmol/L Potassium (3.5-5.1) mmol/L Chloride (98-107) mmol/L Carbon Dioxide (22-30) mmol/L Anion Gap mmol/L BUN (9-20) mg/dL Creatinine (0.66-1.25) mg/dL Est GFR (CKD-EPI)AfAm (>60 ml/min/1.73 sqM) Est GFR (CKD-EPI)NonAf (>60 ml/min/1.73 sqM) Glucose (74-99) mg/dL Plasma Lactic Acid Hany (0.7-2.0) mmol/L Calcium (8.4-10.2) mg/dL Total Bilirubin (0.2-1.3) mg/dL AST (17-59) U/L ALT (4-49) U/L Alkaline Phosphatase (38-126) U/L Total Protein (6.3-8.2) g/dL Albumin (3.5-5.0) g/dL Amylase (30-110) U/L Lipase (23-300) U/L Urine Color Light Yellow Urine Appearance Clear (Clear) Urine pH 5.5 (5.0-8.0) Ur Specific [place] 1.008 (1.001-1.035) Urine Protein Negative (Negative) Urine Glucose (UA) Negative (Negative) Urine Ketones Negative (Negative) Urine Blood Negative (Negative) Urine Nitrite Negative (Negative) Urine Bilirubin Negative (Negative) Urine Urobilinogen <2.0 (<2.0) mg/dL Ur Leukocyte Esterase Negative (Negative) Disposition Clinical Impression: Abdominal pain Disposition: HOME SELF-CARE Condition: Poor Instructions (If sedation given, give patient instructions): Abdominal Pain (ED) Additional Instructions: Please take pepcid as directed. Follow up with primary care tomorrow. Return to the emergency department if you have any worsening symptoms. Prescriptions: Famotidine [Pepcid] 20 mg PO BID #14 tablet Is patient prescribed a controlled substance at d/c from ED?: No Referrals: Morteza Lugo MD [Primary Care Provider] - 1-2 days Time of Disposition: 02:18
[2019-08-26 23:48] LABS: Appearance,Urine Clear (Clear); Bilirubin,Urine Negative (Negative); Blood,Urine Negative (Negative); Color,Urine Light Yellow; Glucose,Urine (UA) Negative (Negative); Ketones,Urine Negative (Negative); Leukocyte Esterase,Urine Negative (Negative); Nitrite,Urine Negative (Negative); PH, Urine 5.5 (5.0-8.0); Protein,Urine Negative (Negative); Specific Gravity,Urine 1.008 (1.001-1.035); Urobilinogen,Urine <2.0 mg/dL (<2.0)
[2019-08-26 23:57] LABS: ALT 46 U/L (4-49); AST 30 U/L (17-59); African American GFR (CKD) >90 (>60 ml/min/1.73 sqM); Albumin 4.2 g/dL (3.5-5.0); Alkaline Phosphatase 57 U/L (38-126); Amylase 124 U/L (30-110); Anion Gap 8 mmol/L; Blood Urea Nitrogen 24 mg/dL (9-20); Calcium 9.9 mg/dL (8.4-10.2); Carbon Dioxide 24 mmol/L (22-30); Chloride 102 mmol/L (98-107); Glucose 110 mg/dL (74-99); Non-African American GFR(CKD) >90 (>60 ml/min/1.73 sqM); Potassium 4.4 mmol/L (3.5-5.1); Sodium 134 mmol/L (137-145); Total Bilirubin 0.4 mg/dL (0.2-1.3); Total Protein 7.2 g/dL (6.3-8.2)
[2019-08-27 00:12] LABS: Basophils % (A) 0 %; Eosinophils # (A) 0.1 k/uL (0-0.7); Eosinophils % (A) 2 %; HCT 44.3 % (39.0-53.0); HGB 15.1 gm/dL (13.0-17.5); Lymphocytes # (A) 1.1 k/uL (1.0-4.8); Lymphocytes % (A) 17 %; MCH 32.5 pg (25.0-35.0); MCHC 34.1 g/dL (31.0-37.0); MCV 95.5 fL (80.0-100.0); Mean Platelet Volume 7.3; Monocytes # (A) 0.5 k/uL (0-1.0); Monocytes % (A) 8 %; Neutrophils # (A) 4.5 k/uL (1.3-7.7); Neutrophils % (A) 71 %; Platelet Count 306 k/uL (150-450); RBC 4.64 m/uL (4.30-5.90); RDW 11.8 % (11.5-15.5); WBC 6.3 k/uL (3.8-10.6)
[2019-08-27] MEDS ORDERED: MAG HYDROX/AL HYDROX/SIMETH 30 ML, HYOSCYAMINE ELIXIR 10 ML, LIDOCAINE VISCOUS 2% 10 ML PO STA ×3 (00:17)
--- NOTE | 2019-08-27 01:08 | CT ---
EXAMINATION TYPE: CT abdomen pelvis w con DATE OF EXAM: 08/27/2019 COMPARISON: 11/22/2017 HISTORY: LLQ, ABD PAIN CT DLP: 805.30 mGycm Automated exposure control for dose reduction was used. CONTRAST: Performed with IV Contrast, patient injected with 100 mL of Isovue 300. Multiple axial sections were obtained from the diaphragm to the floor the pelvis with intravenous con trast. Lung bases are clear. There is no pleural effusion. Heart appears normal. There is no pericardial eff usion. Liver spleen stomach pancreas gallbladder appear normal. Bile ducts are not dilated. There is no adrenal mass. Kidneys show satisfactory contrast opacification. There is no hydronephrosi s. Ureters are not dilated. There is no retroperitoneal adenopathy. There is some prostatic calcifica tion. There is mild urinary bladder wall thickening. There is no inguinal hernia. There are sigmoid d iverticula without evidence of diverticulitis. Appendix appears normal. There is no mesenteric edema. There is no ascites or free air. There is no sign of a bowel obstruction. Lumbar vertebra have brooklynn l alignment. The bony pelvis is intact. I see no bony destructive process. IMPRESSION: Mild sigmoid diverticulosis without diverticulitis. Mild urinary bladder wall thickening could relate to nonspecific cystitis and appears similar to old exam. Normal appendix.
[2019-08-27] MEDS ORDERED: FAMOTIDINE 20 MG/2 ML VIAL IV STA (01:26)
[2019-08-27] MEDS ORDERED: HYDROmorphone 0.5 MG/0.5 ML SYRINGE IVP STA (01:26)
[2019-08-27 01:49] VITALS: BP 143/98; PULSE 66; RESP 18
== END 2019-08-27 02:25 | disposition home or self-care (01) ==
LOC: EC 23:05
DX: K57.32 Diverticulitis of large intestine without perforation or abscess without bleeding (principal); J45.909 Unspecified asthma, uncomplicated; M19.90 Unspecified osteoarthritis, unspecified site; Z79.51 Long term (current) use of inhaled steroids; Z79.1 Long term (current) use of non-steroidal anti-inflammatories (NSAID); Z79.899 Other long term (current) drug therapy; Z91.013 Allergy to seafood; Z88.8 Allergy status to other drugs, medicaments and biological substances
CPT/HCPCS: 36415; 80053; 82150; 83605; 83690; 85025; 81003; 74177; 99284; 96374; 96375 ×2; 96361 ×2; J1885; J1170; Q9967

== ENCOUNTER → 2021-05-18 | Outpatient (CLI) | payer BC ==
--- NOTE | 2021-05-19 08:30 | CT ---
EXAMINATION TYPE: CT ChestAbdPelvis w con DATE OF EXAM: 05/18/2021 COMPARISON: CT abdomen and pelvis August 27, 2019 HISTORY: weight loss CT DLP: 720.10 mGycm. Automated Exposure Control for Dose Reduction was Utilized. CONTRAST: CT scan of the thorax, abdomen and pelvis is performed with oral and with IV Contrast, patient inject ed with 100 mL of Isovue 300. FINDINGS: LUNGS: The lungs are grossly clear, there is no concerning parenchymal mass or nodule identified. T here is no pleural effusion or pneumothorax seen. The tracheobronchial tree is patent. MEDIASTINUM: There are no greater than 1 cm hilar or mediastinal lymph nodes. No cardiomegaly or pe ricardial effusion is seen. OTHER: Flame-shaped subareolar gynecomastia. LIVER/GB: Tiny hypodense lesion anterior liver axial image 52 redemonstrated presumed benign. PANCREAS: No significant abnormality is seen. SPLEEN: No significant abnormality is seen. ADRENALS: No significant abnormality is seen. KIDNEYS: No significant abnormality is seen. BOWEL: Oral contrast reaches level of the proximal transverse colon. No suspicious small or large bow el dilatation. GENITAL ORGANS: Prostate gland upper limits of normal in size with central calcification. LYMPH NODES: No greater than 1cm abdominal or pelvic lymph nodes are appreciated. OSSEOUS STRUCTURES: No significant abnormality is seen. OTHER: No significant additional abnormality is seen. IMPRESSION: No suspicious new mass or adenopathy.
== END | disposition home or self-care (01) ==
LOC: RADCTMAIN 17:17
PROVIDERS: ATTEND Family Medicine
DX: R63.4 Abnormal weight loss (principal)
CPT/HCPCS: 71260; 74177; Q9967

== ENCOUNTER → 2021-08-11 | Outpatient (CLI) | payer BC ==
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
== END | disposition home or self-care (01) ==
LOC: RADMRIMAIN 15:56
PROVIDERS: ATTEND Family Medicine
DX: M47.812 Spondylosis without myelopathy or radiculopathy, cervical region (principal); M47.26 Other spondylosis with radiculopathy, lumbar region; M41.86 Other forms of scoliosis, lumbar region
CPT/HCPCS: 72141; 72148

== ENCOUNTER → 2021-09-21 | Outpatient (CLI) | payer BC ==
--- NOTE | 2021-09-21 14:38 | XR ---
EXAMINATION TYPE: XR chest 2V DATE OF EXAM: 09/21/2021 COMPARISON: Chest x-ray 05/17/2016 HISTORY: R 53.1, M 54.2 TECHNIQUE: Frontal and lateral views of the chest are obtained. FINDINGS: There is no focal air space opacity, pleural effusion, or pneumothorax seen. The cardiac silhouette size is within normal limits. The osseous structures are intact, there is a slight spina l curvature. IMPRESSION: No acute cardiopulmonary process.
[2021-09-21 20:24] LABS: Appearance,Urine Clear (Clear); Color,Urine Yellow (Yellow); PH, Urine 6.5 (4.5-8.0); Specific Gravity,Urine 1.003 (1.001-1.030)
== END | disposition home or self-care (01) ==
LOC: LABWHC1 11:21
PROVIDERS: ATTEND Orthopaedic Surgery Orthopaedic Surgery of the Spine
DX: M50.222 Other cervical disc displacement at C5-C6 level (principal); M50.223 Other cervical disc displacement at C6-C7 level; M54.12 Radiculopathy, cervical region; R53.1 Weakness
CPT/HCPCS: 71046; 81003

== ENCOUNTER → 2024-01-27 | Outpatient (CLI) | payer OTHER ==
--- NOTE | 2024-01-27 11:52 | XR ---
EXAMINATION TYPE: XR Hip Complete LT DATE OF EXAM: 01/27/2024 10:59 AM CLINICAL INDICATION:Male, 58 years old with history of S73.102A SPRAIN OF LEFT HIP S83.92XA SPRAIN OF LE; [facility] COMPARISON: None. TECHNIQUE: XR Hip Complete LT; hip was examined in the frontal and lateral projections and a AP pelvi s. FINDINGS: No evidence for acute process, joint dislocation or significant soft tissue swelling. Osteo phyte formation of the superior acetabulum of the hip. There is mild joint space narrowing. IMPRESSION: 1. No evidence for acute process. 2. Mild to moderate hip osteoarthrosis.
--- NOTE | 2024-01-27 11:54 | XR ---
EXAMINATION TYPE: XR knee complete LT DATE OF EXAM: 01/27/2024 11:00 AM CLINICAL INDICATION:Male, 58 years old with history of S73.102A SPRAIN OF LEFT HIP S83.92XA SPRAIN OF LE; [facility] COMPARISON: None. TECHNIQUE: XR knee complete LT; examined in Frontal, lateral and oblique projections. FINDINGS: No evidence of any acute osseous pathology, soft tissue swelling, or joint effusion is no lisa. Tricompartmental osteophyte formation involving the femoral condyles, tibial plateau and patella . Mild joint space narrowing. A fabella is present IMPRESSION: 1. No acute osseous pathology. 2. Mild tricompartmental osteoarthritic changes.
== END | disposition home or self-care (01) ==
LOC: RADXRMAIN 10:44
PROVIDERS: ATTEND Emergency Medicine
DX: M16.12 Unilateral primary osteoarthritis, left hip (principal); M17.12 Unilateral primary osteoarthritis, left knee; S73.102A Unspecified sprain of left hip, initial encounter; S83.92XA Sprain of unspecified site of left knee, initial encounter; X58.XXXA Exposure to other specified factors, initial encounter
CPT/HCPCS: 73502

== ENCOUNTER → 2024-02-06 | Outpatient (CLI) | payer OTHER ==
--- NOTE | 2024-02-06 16:46 | XR ---
EXAMINATION TYPE: XR tibia fibula LT DATE OF EXAM: 02/06/2024 4:28 PM CLINICAL INDICATION:Male, 58 years old with history of S83.92XD SPRAIN OF UNSPECIFIED SITE OF LEFT KN EE,; [facility] COMPARISON: None TECHNIQUE: XR tibia fibula LT; tibia/fibula was examined in AP and lateral projections. FINDINGS: No evidence of any acute osseous pathology, joint dislocation, or soft tissue swelling is n oted. A fabella is present. Mild degeneration changes of the knee with osteophyte formation joint spa ce narrowing. IMPRESSION: No evidence of acute fracture.
== END | disposition home or self-care (01) ==
LOC: RADXRMAIN 15:32
PROVIDERS: ATTEND Emergency Medicine
DX: S83.92XD Sprain of unspecified site of left knee, subsequent encounter (principal)